=== PATIENT | male | born 1960 | race Caucasian/White ===

== ENCOUNTER 2017-06-06 09:56 | Inpatient (IN) | payer OTHER ==
[2017-06-06] VITALS (7 sets, daily range): BP systolic 105–120; BP diastolic 62–85
[~2017-06-06] VITALS: Ht 177.8 cm; Wt 62.9 kg
[2017-06-06 10:54] LABS: INTER. NORMALIZED RATIO 1.3
[2017-06-06 10:56] LABS: PTT 28.1 SEC (25-37)
[2017-06-06 10:57] LABS: CHLORIDE 107 mEq/L (99-109); POTASSIUM 4.1 mEq/L (3.7-5.4); SODIUM 135 mEq/L (136-147)
[2017-06-06 10:58] LABS: GLUCOSE 94 mg/dL (70-99)
[2017-06-06 11:02] LABS: CREATININE 0.6 mg/dL (0.6-1.3); GFR ESTIMATE (CALCULATED) > 59 mL/min/ (58.99-99999)
[2017-06-06 11:03] LABS: UREA NITROGEN (BUN) 9 mg/dL (9-23)
[2017-06-06 11:08] LABS: TROP-I INTERPRETATION NEGATIVE; TROPONIN-I 0.06 ng/mL (0.0-0.30)
[2017-06-06 11:16] LABS: HEMATOCRIT 24.3 % (38.0-50.0); HEMOGLOBIN 7.8 G/DL (12.5-16.6); MCH 24.2 PG (29.0-34.0); MCHC 32.1 G/DL (30.0-36.0); MCV 75.5 FL (86-99); NRBC (%) 4.4 /100 WBC (0-0); RBC DIS.WIDTH-SD 63.6 % (39-53); RED BLOOD COUNT 3.22 M/uL (4.00-5.50); WHITE BLOOD COUNT 21.4 K/uL (4.1-10.2)
[2017-06-06] MEDS ORDERED: SUPER BETA PROSTATE PO (12:03)
[2017-06-06 12:38] LABS: THYROTROPIN (TSH) 3.3 MIU/L (0.4-5.5)
[2017-06-06 12:51] LABS: IMM.PLATELET FRACTION 13.5 (1-7); PLATELET COUNT 45 K/uL (156-360)
[2017-06-06 13:45] LABS: ABSOLUTE RETICULOCYTE CT. 0.1 M/uL (0.02-0.08); IMM.RETIC FRACTION 37.2 % (3-19); RETIC HGB EQUIVALENT 25.6 (28-36); RETICULOCYTE COUNT 2.3 % (0.5-1.8)
[2017-06-06 14:19] LABS: HDL CHOLESTEROL 22 MG/DL (Desirable>=40); IRON 24 MCG/DL (35-150); LDL CHOLESTEROL 64 mg/dL (Desirable<100); MAGNESIUM 2.1 mg/dl (1.3-2.7); NON-HDL CHOLESTEROL 76 mg/dL (Desirable<160); TOTAL CHOLESTEROL 98 mg/dL (Desirable<200); TRANSFERRIN (TIBC) 162.7 mg/dL (215-380); TRANSFERRIN SATUR. 15 % (20-55); TRIGLYCERIDES 61 MG/DL (Normal: <150)
[2017-06-06 14:37] LABS: FERRITIN 657 NG/ML (22-322)
[2017-06-06 14:38] LABS: FOLIC ACID (FOLATE) 9.1 NG/ML (5.0-22.0)
[2017-06-06 20:01] LABS: TROP-I INTERPRETATION NEGATIVE; TROPONIN-I 0.12 ng/mL (0.0-0.30)
[2017-06-07 03:38] LABS: HEMATOCRIT 26.8 % (38.0-50.0); MCH 25.1 PG (29.0-34.0); MCHC 33.6 G/DL (30.0-36.0); MCV 74.9 FL (86-99); NRBC (%) 8.3 /100 WBC (0-0); RBC DIS.WIDTH-SD 61.3 % (39-53); RED BLOOD COUNT 3.58 M/uL (4.00-5.50); WHITE BLOOD COUNT 23.3 K/uL (4.1-10.2)
[2017-06-07 03:42] LABS: ALBUMIN 2.9 g/dL (3.2-4.8)
[2017-06-07 03:43] LABS: CHLORIDE 108 mEq/L (99-109); POTASSIUM 4.2 mEq/L (3.7-5.4); SODIUM 135 mEq/L (136-147)
[2017-06-07 03:45] LABS: GLUCOSE 104 mg/dL (70-99); TOTAL PROTEIN 5.4 g/dL (6.4-8.3)
[2017-06-07 03:47] LABS: TOTAL BILIRUBIN 1.1 mg/dL (0.0-1.0)
[2017-06-07 03:48] LABS: ALKALINE PHOSPHATASE 158 IU/L (3-129)
[2017-06-07 03:49] LABS: CREATININE 0.5 mg/dL (0.6-1.3); GFR ESTIMATE (CALCULATED) > 59 mL/min/ (58.99-99999)
[2017-06-07 03:50] LABS: AST (GOT) 42 IU/L (2-34); UREA NITROGEN (BUN) 7 mg/dL (9-23)
[2017-06-07 03:52] LABS: ALT (GPT) 30 IU/L (3-49)
[2017-06-07 03:53] LABS: TROP-I INTERPRETATION NEGATIVE; TROPONIN-I 0.09 ng/mL (0.0-0.30)
[2017-06-07 05:27] LABS: IMM.PLATELET FRACTION 15.8 (1-7); PLAT.SUFFICIENCY VERY DECREASED; PLATELET COUNT 44 K/uL (156-360)
[2017-06-07 05:47] VITALS: BP 97/56
[2017-06-07 08:00] VITALS: BP 121/67
[2017-06-07 09:53] LABS: ANISOCYTOSIS 2+; HYPOCHROMASIA 2+; MACROCYTES 1+; MICROCYTOSIS 1+; OVALOCYTES 1+; PLAT.SUFFICIENCY DECREASED; POIKILOCYTOSIS 1+; POLYCHROMASIA 1+
[2017-06-07 10:17] LABS: ABS NEUTROPHIL COUNT 15.2; BAND NEUTROPHILS 18.5 % (0-8.0); EOSINOPHIL ABS CT 0; LYMPHOCYTES 2.5 % (15.0-45.0); NUCLEATED RBC'S 4.5; SEG.NEUTROPHILS 52.5 % (46.0-76.0)
[2017-06-07 12:01] VITALS: BP 106/73
[2017-06-07 12:47] LABS: APPEARANCE CLEAR ((CLEAR)); BILIRUBIN NEGATIVE; BLOOD SMALL; COLOR YELLOW ((YELLOW)); GLUCOSE (STRIP) NEGATIVE; KETONES NEGATIVE; LEUKOCYTES NEGATIVE; NITRITE NEGATIVE; PROTEIN (STRIP) NEGATIVE; SPECIFIC GRAVITY 1.003 (1.000-1.030)
[2017-06-07 12:49] LABS: BACTERIA NONE SEEN /HPF; EPITHELIAL CELLS NONE SEEN /HPF; MUCUS TRACE /LPF; RED BLOOD CELLS 0-5 /HPF (0-5); UCUL ADDED? NO; WHITE BLOOD CELLS 0-5 /HPF (0-5)
[2017-06-07 17:04] VITALS: BP 119/69
[2017-06-07 23:00] VITALS: BP 117/82
[2017-06-08 03:56] VITALS: BP 114/68
[2017-06-08 08:34] VITALS: BP 101/64
[2017-06-08 09:28] LABS: HEMATOCRIT 27.1 % (38.0-50.0); HEMOGLOBIN 8.4 G/DL (12.5-16.6); MCH 23.7 PG (29.0-34.0); MCV 76.6 FL (86-99); NRBC (%) 11.1 /100 WBC (0-0); RBC DIS.WIDTH-CV 25.2 % (11.8-14.6); RBC DIS.WIDTH-SD 66.3 % (39-53); RED BLOOD COUNT 3.54 M/uL (4.00-5.50); WHITE BLOOD COUNT 23.6 K/uL (4.1-10.2)
[2017-06-08 09:51] LABS: IMM.PLATELET FRACTION 11.2 (1-7); PLATELET COUNT 50 K/uL (156-360)
[2017-06-08 09:54] LABS: CHLORIDE 108 MEQ/L (99-109); CREATININE 0.4 MG/DL (0.6-1.3); GFR ESTIMATE (CALCULATED) > 59 mL/min/ (58.99-99999); POTASSIUM 3.8 MEQ/L (3.7-5.4); SODIUM 134 MEQ/L (136-147); UREA NITROGEN (BUN) 7 mg/dL (9-23)
[2017-06-08 09:55] LABS: ALBUMIN 2.6 G/DL (3.2-4.8); ALKALINE PHOSPHATASE 123 IU/L (3-129); ALT (GPT) 23 IU/L (3-49); AST (GOT) 33 IU/L (2-34); DIRECT BILIRUBIN 0.2 mg/dL (0.0-0.3); TOTAL BILIRUBIN 0.7 MG/DL (0.0-1.0); TOTAL PROTEIN 5.1 G/DL (6.4-8.3)
[2017-06-08 10:02] LABS: GLUCOSE 167 mg/dL (70-99)
[2017-06-08 11:02] VITALS: BP 98/55
[2017-06-08 15:58] VITALS: BP 108/68
[2017-06-08 19:45] VITALS: BP 112/72
[2017-06-09 02:33] VITALS: BP 112/65
[2017-06-09 05:18] LABS: IMM.RETIC FRACTION 40.6 % (3-19); RETIC HGB EQUIVALENT 24.3 (28-36)
[2017-06-09 05:19] LABS: RETICULOCYTE COUNT 3.6 % (0.5-1.8)
[2017-06-09 05:24] LABS: HEMATOCRIT 29.1 % (38.0-50.0); HEMOGLOBIN 9.2 G/DL (12.5-16.6); MCH 24.7 PG (29.0-34.0); MCHC 31.6 G/DL (30.0-36.0); NRBC (%) 16.2 /100 WBC (0-0); RBC DIS.WIDTH-CV 26.3 % (11.8-14.6); RBC DIS.WIDTH-SD 69.3 % (39-53); RED BLOOD COUNT 3.73 M/uL (4.00-5.50); WHITE BLOOD COUNT 27.5 K/uL (4.1-10.2)
[2017-06-09 05:32] LABS: URIC ACID 3.4 mg/dL (3.1-9.2)
[2017-06-09 05:44] LABS: ALBUMIN 2.7 G/DL (3.4-5.0); GLOBULINS 2.6 G/DL (2.3-3.5); TOTAL PROTEIN 5.3 G/DL (6.4-8.2)
[2017-06-09 05:57] LABS: ABS NEUTROPHIL COUNT 18.8; ANISOCYTOSIS 2+; ATYPICAL LYMPHOCYTE 0.4 %; BAND NEUTROPHILS 20.2 % (0-8.0); BASOPHILS 0.5 %; BURR CELLS 1+; EOSINOPHIL ABS CT 0; HYPOCHROMASIA 1+; IMM.PLATELET FRACTION 13.3 (1-7); LYMPHOCYTES 4.8 % (15.0-45.0); METAMYELOCYTES 10.5 %; MICROCYTOSIS 1+; MYELOCYTES 14.9 %; NUCLEATED RBC'S 14.5; OTHER 0.4; OVALOCYTES 2+; PLAT.SUFFICIENCY VERY DECREASED; PLATELET COUNT 50 K/uL (156-360); POIKILOCYTOSIS 1+; POLYCHROMASIA 3+; SCHISTOCYTES 1+; SEG.NEUTROPHILS 48.3 % (46.0-76.0); SPHEROCYTES 2+; TARGET CELLS 1+; TEAR DROP CELLS 1+
[2017-06-09 07:24] VITALS: BP 99/67
[2017-06-09 11:00] VITALS: BP 101/71
[2017-06-09 11:19] LABS: HEPATITIS C ANTIBODY Nonreactive; HIV-1/2 AB/AG COMBO Nonreactive
[2017-06-09] MEDS ORDERED: METOPROLOL SUCC50 MG PO (12:51)
[2017-06-09] MEDS ORDERED: DIGOXIN125 MCG PO (12:51)
[2017-06-09] MEDS ORDERED: FERRETTS325 MG PO (12:51)
[2017-06-09] MEDS ORDERED: FUROSEMIDE20 MG PO (12:51)
[2017-06-09 15:10] LABS: STOOL OCCULT BLD 1ST SPECIMEN NEGATIVE
[2017-06-11 16:15] LABS: Flow Clinical Information NOT PROVIDED (()); Flow Number of Markers 22 (()); Flow Spec Viability 92 % (()); Flow Specimen Type PERIPHERAL BLOOD (())
[2017-06-13 14:48] LABS: ALBUMIN 2.48 G/DL (3.6-4.9); ALPHA-1 GLOBULIN 0.42 G/DL (0.15-0.40); ALPHA-2 GLOBULIN 0.61 G/DL (0.45-0.85); BETA-GLOBULIN 0.75 G/DL (0.65-1.15); GAMMA-GLOBULIN 1.04 G/DL (0.60-1.35)
== END 2017-06-09 14:22 | disposition home or self-care (01) | DRG 308 ==
LOC: EME 09:56 → EDOF 12:00 → 4EAST 12:00 → ENRESERV 12:05 → 4EAST 17:54
PROVIDERS: Emergency Medicine; Hospitalist; Internal Medicine; Internal Medicine Gastroenterology
PROC: 30233N1 Transfusion of Nonautologous Red Blood Cells into Peripheral Vein, Percutaneous Approach (ICD-10-PCS; principal; 2017-06-06)
DX: I48.2 Chronic atrial fibrillation (principal); I50.41 Acute combined systolic (congestive) and diastolic (congestive) heart failure; I81 Portal vein thrombosis; Z68.1 Body mass index [BMI] 19.9 or less, adult; E46 Unspecified protein-calorie malnutrition; I47.2 Ventricular tachycardia; D64.9 Anemia, unspecified; I42.0 Dilated cardiomyopathy; I27.20 Pulmonary hypertension, unspecified; I11.0 Hypertensive heart disease with heart failure; F17.210 Nicotine dependence, cigarettes, uncomplicated; D72.829 Elevated white blood cell count, unspecified; F10.10 Alcohol abuse, uncomplicated; R79.1 Abnormal coagulation profile; I36.1 Nonrheumatic tricuspid (valve) insufficiency; D69.59 Other secondary thrombocytopenia; Z82.49 Family history of ischemic heart disease and other diseases of the circulatory system; Z83.79 Family history of other diseases of the digestive system; Z80.0 Family history of malignant neoplasm of digestive organs
CPT/HCPCS: 71045; 74178; 76705; 80048; 80053; 80061; 80076; 81003; 81206 90; 81240 90; 81270 90; 82272; 82525 90; 82607; 82728; 82746; 83090 90; 83540; 83615; 83735; 83880; 84165; 84443; 84466; 84484; 84550; 84630 90; 85025; 85027; 85046; 85240 90; 85300 90; 85303 90; 85305 90; 85306 90; 85384; 85610; 85613 90; 85730; 85730 90; 86146 90; 86147 90; 86334; 86803; 86850; 86900; 86901; 86920; 87389; 87502; 93005; 93306; 99202; 99281; 99285; J1160; J1756; J1940; J7030; J7050; P9016

== ENCOUNTER 2017-09-20 09:31 | Inpatient (IN) | payer OTHER ==
[~2017-09-20] VITALS: Ht 177.8 cm; Wt 54.6 kg
[2017-09-20] VITALS (9 sets, daily range): BP systolic 98–112; BP diastolic 57–68
[~2017-09-20 09:31] MED LIST: DIGOXIN125 MCG PO; FERRETTS325 MG PO; FUROSEMIDE20 MG PO; METOPROLOL SUCC50 MG PO; SUPER BETA PROSTATE PO
[2017-09-20 11:41] LABS: INTER. NORMALIZED RATIO 1.4
[2017-09-20 11:43] LABS: ALBUMIN 2.9 g/dL (3.2-4.8); CHLORIDE 97 mEq/L (99-109); POTASSIUM 3.9 mEq/L (3.7-5.4); SODIUM 130 mEq/L (136-147)
[2017-09-20 11:46] LABS: GLUCOSE 115 mg/dL (70-99); HEMATOCRIT 31.6 % (38.0-50.0); HEMOGLOBIN 10.4 G/DL (12.5-16.6); MCH 25.9 PG (29.0-34.0); MCHC 32.9 G/DL (30.0-36.0); MCV 78.6 FL (86-99); NRBC (%) 1.8 /100 WBC (0-0); RBC DIS.WIDTH-CV 26.9 % (11.8-14.6); RBC DIS.WIDTH-SD 73.7 % (39-53); RED BLOOD COUNT 4.02 M/uL (4.00-5.50); TOTAL PROTEIN 5.8 g/dL (6.4-8.3)
[2017-09-20 11:47] LABS: WHITE BLOOD COUNT 37.3 K/uL (4.1-10.2)
[2017-09-20 11:48] LABS: TOTAL BILIRUBIN 0.9 mg/dL (0.0-1.0)
[2017-09-20 11:49] LABS: ALKALINE PHOSPHATASE 123 IU/L (3-129); CREATININE 0.5 mg/dL (0.6-1.3); GFR ESTIMATE (CALCULATED) > 59 mL/min/ (58.99-99999)
[2017-09-20 11:50] LABS: UREA NITROGEN (BUN) 14 mg/dL (9-23)
[2017-09-20 11:51] LABS: AST (GOT) 40 IU/L (2-34)
[2017-09-20 11:52] LABS: ALT (GPT) 38 IU/L (3-49)
[2017-09-20 12:57] LABS: APPEARANCE SL.HAZY ((CLEAR)); BILIRUBIN NEGATIVE; BLOOD SMALL; COLOR YELLOW ((YELLOW)); GLUCOSE (STRIP) NEGATIVE; KETONES NEGATIVE; LEUKOCYTES NEGATIVE; NITRITE NEGATIVE; PROTEIN (STRIP) NEGATIVE; SPECIFIC GRAVITY 1.015 (1.000-1.030)
[2017-09-20] MEDS ORDERED: DIGOX250 MCG PO (12:57)
[2017-09-20] MEDS ORDERED: METOPROLOL SUC100 MG PO (12:57)
[2017-09-20] MEDS ORDERED: DOXYCYCLINE MO100 MG PO (12:58)
[2017-09-20] MEDS ORDERED: FERROUS SULFAT325 MG PO (12:58)
[2017-09-20 12:59] LABS: BACTERIA RARE /HPF; EPITHELIAL CELLS NONE SEEN /HPF; MUCUS TRACE /LPF; RED BLOOD CELLS 0-5 /HPF (0-5); UCUL ADDED? NO; WHITE BLOOD CELLS 0-5 /HPF (0-5)
[2017-09-20] MEDS ORDERED: DIPROSONE 0.05%15 GM TP (12:59)
[2017-09-20 13:25] LABS: ANISOCYTOSIS 2+; BAND NEUTROPHILS 23.2 % (0-8.0); BASOPHILS 0.9 %; EOSINOPHIL ABS CT 0; HEMATOLOGY COMMENT 1 OTHERS=IMMATURE MONONUCLEAR CELLS; IMM.PLATELET FRACTION 18.1 (1-7); LYMPHOCYTES 2.7 % (15.0-45.0); MACROCYTES 1+; METAMYELOCYTES 18.8 %; MICROCYTOSIS 2+; MONOCYTES 0.9 % (0-9.0); MYELOCYTES 18.7 %; NUCLEATED RBC'S 0.9; OTHER 1.8; PLAT.SUFFICIENCY VERY DECREASED; PLATELET COUNT 3 K/uL (156-360); POLYCHROMASIA 1+; TARGET CELLS 1+
[2017-09-21 01:22] LABS: HEMATOCRIT 27.4 % (38.0-50.0); HEMOGLOBIN 8.9 G/DL (12.5-16.6); MCH 25.6 PG (29.0-34.0); MCHC 32.5 G/DL (30.0-36.0); NRBC (%) 1.7 /100 WBC (0-0); RBC DIS.WIDTH-CV 26.5 % (11.8-14.6); RBC DIS.WIDTH-SD 73.4 % (39-53); RED BLOOD COUNT 3.47 M/uL (4.00-5.50)
[2017-09-21 02:21] LABS: IMM.PLATELET FRACTION 2.8 (1-7)
[2017-09-21 03:13] LABS: PLATELET COUNT 48 K/uL (156-360)
[2017-09-21 04:14] VITALS: BP 100/54
[2017-09-21 06:28] LABS: HEMATOCRIT 27.3 % (38.0-50.0); HEMOGLOBIN 8.7 G/DL (12.5-16.6); MCH 25.6 PG (29.0-34.0); MCHC 31.9 G/DL (30.0-36.0); MCV 80.3 FL (86-99); NRBC (%) 1.5 /100 WBC (0-0); RBC DIS.WIDTH-CV 26.9 % (11.8-14.6); RBC DIS.WIDTH-SD 75.6 % (39-53)
[2017-09-21 06:33] LABS: CHLORIDE 106 MEQ/L (99-109); CREATININE 0.4 MG/DL (0.6-1.3); GFR ESTIMATE (CALCULATED) > 59 mL/min/ (58.99-99999); POTASSIUM 3.7 MEQ/L (3.7-5.4); SODIUM 136 MEQ/L (136-147); UREA NITROGEN (BUN) 14 mg/dL (9-23)
[2017-09-21 06:34] LABS: GLUCOSE 180 mg/dL (70-99)
[2017-09-21 06:39] LABS: WHITE BLOOD COUNT 34.4 K/uL (4.1-10.2)
[2017-09-21 06:52] LABS: IMM.PLATELET FRACTION 2.7 (1-7); PLATELET COUNT 41 K/uL (156-360)
[2017-09-21 07:30] VITALS: BP 104/58
[2017-09-21 12:00] VITALS: BP 117/66
[2017-09-21 16:17] VITALS: BP 120/73
[2017-09-21 23:40] VITALS: BP 121/74
[2017-09-22 06:30] LABS: HEMATOCRIT 27.1 % (38.0-50.0); HEMOGLOBIN 8.4 G/DL (12.5-16.6); MCH 25.4 PG (29.0-34.0); MCV 81.9 FL (86-99); NRBC (%) 3.9 /100 WBC (0-0); RBC DIS.WIDTH-CV 27.3 % (11.8-14.6); RED BLOOD COUNT 3.31 M/uL (4.00-5.50)
[2017-09-22 06:55] LABS: WHITE BLOOD COUNT 47.6 K/uL (4.1-10.2)
[2017-09-22 07:05] VITALS: BP 109/82
[2017-09-22 09:30] LABS: IMM.PLATELET FRACTION 3.5 (1-7); PLAT.SUFFICIENCY DECREASED; PLATELET COUNT 32 K/uL (156-360)
[2017-09-22] MEDS ORDERED: TRAMADOL HCL50 MG PO (11:10)
[2017-09-22] MEDS ORDERED: CEFTRIAXON2 GM/50 M1 IV (13:06)
== END 2017-09-22 13:54 | disposition home or self-care (01) | DRG 988 ==
LOC: EME 09:31 → EDOF 11:52 → ENRESERV 11:52 → 5EAST 11:52 → ENRESERV 12:29 → 5EAST 13:19
PROVIDERS: Emergency Medicine; Internal Medicine
PROC: 0L970ZZ Drainage of Right Hand Tendon, Open Approach (ICD-10-PCS; principal; 2017-09-20)
PROC: 30233R1 Transfusion of Nonautologous Platelets into Peripheral Vein, Percutaneous Approach (ICD-10-PCS; 2017-09-20)
DX: L02.511 Cutaneous abscess of right hand (principal); L03.011 Cellulitis of right finger; M65.141 Other infective (teno)synovitis, right hand; S61.212A Laceration without foreign body of right middle finger without damage to nail, initial encounter; W23.0XXA Caught, crushed, jammed, or pinched between moving objects, initial encounter; D69.6 Thrombocytopenia, unspecified; L98.2 Febrile neutrophilic dermatosis [Sweet]; D75.81 Myelofibrosis; I48.0 Paroxysmal atrial fibrillation; D64.9 Anemia, unspecified; F10.10 Alcohol abuse, uncomplicated; F17.210 Nicotine dependence, cigarettes, uncomplicated; I10 Essential (primary) hypertension; F12.90 Cannabis use, unspecified, uncomplicated
CPT/HCPCS: 36415; 73140; 80048; 80053; 80162; 80202; 81003; 83605; 85025; 85027; 85610; 86850; 86900; 86901; 87040; 87070; 87075; 87205; 87641; 99281; 99285; J0295; J0690; J0696; J2270; J2405; J2930; J3370; J7040; J7050; P9035